=== PATIENT | female | born 1965 | race Two or more races ===

== ENCOUNTER 2021-04-26 09:32 | Outpatient (CLI) | payer OTHER | END 2021-04-26 10:56 | disposition home or self-care (01) | LOC: SONOGRAMA 09:32 | PROVIDERS: ATTEND Pathology Anatomic Pathology & Clinical Pathology | DX: E03.8 Other specified hypothyroidism (principal) ==

== ENCOUNTER 2022-02-13 16:05 | Inpatient (IN) | payer OTHER ==
[~2022-02-13] VITALS: Ht 160 cm; Wt 74.4 kg
[~2022-02-13 16:05] MED LIST: ALENDRONATE SOD70 MG PO; ATORVASTATIN CA10 MG PO; BACLOFEN10 MG PO; CARAFATE1 GM; CLONAZEPAM0.5 MG PO; DAFLONEX-XL 11300 MG PO; FLUOXETINE HCL60 MG; MAXIMUM D3325 MCG PO; OMEPRAZOLE-BIC1 EAC1; PEPCID AC20 MG; TERBINAFINE HC250 MG; ZIAC 2.5-6.251 EACH
== END 2022-02-25 22:20 | disposition home or self-care (01) | DRG 445 ==
LOC: ER 16:05 → SURH 23:41 → SEC-K 23:41 → SURH 02-14 08:25 → O/R 02-15 12:56 → SURH 02-15 12:58
PROVIDERS: ADMIT Internal Medicine; ATTEND Internal Medicine
PROC: BW21ZZZ Computerized Tomography (CT Scan) of Abdomen and Pelvis (ICD-10-PCS; principal; 2022-02-13)
PROC: BF37ZZZ Magnetic Resonance Imaging (MRI) of Pancreas (ICD-10-PCS; 2022-02-13)
PROC: 0F798DZ Dilation of Common Bile Duct with Intraluminal Device, Via Natural or Artificial Opening Endoscopic (ICD-10-PCS; 2022-02-20)
DX: K91.5 Postcholecystectomy syndrome (principal); D69.0 Allergic purpura; K80.51 Calculus of bile duct without cholangitis or cholecystitis with obstruction; I10 Essential (primary) hypertension; M81.0 Age-related osteoporosis without current pathological fracture; Z20.822 Contact with and (suspected) exposure to COVID-19

== ENCOUNTER 2023-07-01 07:23 | Outpatient (CLI) | payer OTHER ==
[~2023-07-01 07:23] MED LIST changes: +LEVOTHYROXINE25 MCG PO
== END 2023-07-01 07:24 | disposition home or self-care (01) ==
LOC: NUCLEAR 07:23
PROVIDERS: ATTEND Internal Medicine Hematology & Oncology
DX: E21.0 Primary hyperparathyroidism (principal)

== ENCOUNTER 2024-01-22 14:35 | Emergency (ER) | payer OTHER ==
[~2024-01-22] VITALS: Ht 154.9 cm; Wt 77.1 kg
[2024-01-22] MEDS ORDERED: FAMOTIDINE/PF 20 MG in 0.9 % SODIUM CHLORIDE 8 ML IV PUSH STA (16:28)
[2024-01-22] MEDS ORDERED: GUAIFENESIN/DEXTROMETHORPHAN 10ML BLIST.PACK PO ONE ×2 (16:30→16:32)
[2024-01-22] MEDS ORDERED: ONDANSETRON HCL 2 MG/ML VIAL IV ONE (16:30)
[2024-01-22] MEDS ORDERED: 0.9 % SODIUM CHLORIDE 1,000 ML IV SCH (16:30)
[2024-01-22] MEDS ORDERED: ONDANSETRON HCL 2 MG/ML VIAL ONE (16:32)
[2024-01-22] MEDS ORDERED: FAMOtidine 200mg/20ml VIAL ONE (16:33)
[2024-01-22 16:55] LABS: HEMATOCRIT 35.9 % (36.0-45.00); MEAN CELL VOLUME 80.4 fL (80.00-100.00); MEAN CORPUSCULAR HEMOGLOBIN 26.9 pg (27.00-32.0); MEAN CORPUSCULAR HGB CONC 33.4 g/dl (32.0-36.0); PLATELET COUNT 271 K/uL (150-450); RED BLOOD COUNT 4.46 M/uL (4.00-6.00); RED CELL DISTRIBUTION WIDTH 14.5 % (11.5-14.5)
[2024-01-22 17:24] LABS: BILIRUBIN TOTAL 0.24 mg/dL (0.3-1.2); CALCIUM 9.3 mg/dL (8.5-10.1); CREATININE SERUM 0.93 mg/dL (0.55-1.02); GFR 61.71; GLOBULINA 3.9 G/DL (2.4-3.5); POTASSIUM 3.35 mEq/L (3.5-5.1); TOTAL PROTEIN 6.9 gm/dL (6.4-8.2)
[2024-01-22] MEDS ORDERED: DOLOGEN CAPLET1 EACH PO (18:30)
[2024-01-22] MEDS ORDERED: ZITHROMAX500 MG PO (18:30)
[2024-01-22] MEDS ORDERED: TUSNEL LIQUID178 ML PO (18:30)
== END 2024-01-22 18:53 | disposition home or self-care (01) ==
LOC: ER 14:35
PROVIDERS: General Practice
DX: U07.1 COVID-19 (principal); I10 Essential (primary) hypertension

== ENCOUNTER 2024-04-22 07:15 | Outpatient (CLI) | payer OTHER ==
[~2024-04-22 07:15] MED LIST changes: +DOLOGEN CAPLET1 EACH PO; +TUSNEL LIQUID178 ML PO; +ZITHROMAX500 MG PO
== END 2024-04-22 07:16 | disposition home or self-care (01) ==
LOC: NUCLEAR 07:15
PROVIDERS: ATTEND Internal Medicine Gastroenterology
DX: R10.9 Unspecified abdominal pain (principal)

== ENCOUNTER 2024-04-27 11:04 | Outpatient (CLI) | payer OTHER | END 2024-04-27 11:08 | disposition home or self-care (01) | LOC: SONOGRAMA 11:04 | PROVIDERS: ATTEND Internal Medicine Gastroenterology | DX: R10.9 Unspecified abdominal pain (principal); E04.1 Nontoxic single thyroid nodule ==

== ENCOUNTER → 2024-04-27 11:55 | Outpatient (CLI) | payer OTHER ==
[2024-04-27 13:12] LABS: URINE APPEARANCE Cloudy; URINE BILIRRUBIN Negative (NEGATIVE); URINE BLOOD Negative; URINE COLOR Yellow; URINE GLUCOSE Negative (NEGATIVE); URINE KETONE Trace (NEGATIVE); URINE LEUKOCYTE Trace; URINE NITRATE Negative; URINE PROTEIN Negative (NEGATIVE); URINE UROBILINOGEN 0.2 E.U./dl
[2024-04-27 13:13] LABS: URINE BACTERIA 1603.8 uL (0.0-1933); URINE EPITHELIAL CELLS 152.8 uL (0.0-38.8); URINE RBC 2.1 uL (0.0-20.8); URINE WBC 15.6 uL (0.0-23.2)
[2024-04-27 13:25] LABS: HEMATOCRIT 36.2 % (36.0-45.00); MEAN CORPUSCULAR HEMOGLOBIN 26.4 pg (27.00-32.0); MEAN CORPUSCULAR HGB CONC 33.1 g/dl (32.0-36.0); PLATELET COUNT 322 K/uL (150-450); RED BLOOD COUNT 4.53 M/uL (4.00-6.00); RED CELL DISTRIBUTION WIDTH 15.7 % (11.5-14.5)
[2024-04-27 13:31] LABS: URINE CAST 0.15 uL (0.0-1.40)
[2024-04-27 13:39] LABS: INR 0.98; PARTIAL THROMBOPLASTIN TIME 26.6 SECONDS (22.0-34.0); PROTHROMBIN TIME 10.7 SECONDS (9.0-11.5)
[2024-04-27 14:24] LABS: ALBUMIN 3.5 gm/dL (3.4-5.0); BILIRUBIN TOTAL 0.28 mg/dL (0.3-1.2); CHOL HDL RATIO 2.5 (0-5.0); CREATININE SERUM 0.98 mg/dL (0.55-1.02); GFR 58.09; GLOBULINA 3.8 G/DL (2.4-3.5); POTASSIUM 4.14 mEq/L (3.5-5.1); T4 FREE 1.17 NG/ML (0.76-1.46); TOTAL PROTEIN 7.3 gm/dL (6.4-8.2); TSH 2.37 uIU/mL (0.358-3.74)
[2024-04-27 14:37] LABS: T3 TOTAL 1.32 ng/ml (0.846-2.02); VITAMIN D3 25 HYDROXY 34.07 ng/ml (30-120)
== END | disposition home or self-care (01) ==
LOC: LAB 11:55
PROVIDERS: ATTEND Internal Medicine
DX: D65 Disseminated intravascular coagulation [defibrination syndrome] (principal); K51.911 Ulcerative colitis, unspecified with rectal bleeding; E13.9 Other specified diabetes mellitus without complications; E78.5 Hyperlipidemia, unspecified; N39.0 Urinary tract infection, site not specified; E03.9 Hypothyroidism, unspecified; E53.8 Deficiency of other specified B group vitamins; D51.9 Vitamin B12 deficiency anemia, unspecified

== ENCOUNTER 2024-05-14 07:09 | Outpatient (CLI) | payer OTHER | END 2024-05-14 07:10 | disposition home or self-care (01) | LOC: NUCLEAR 07:09 | PROVIDERS: ATTEND Specialist | DX: M81.0 Age-related osteoporosis without current pathological fracture (principal); I20.9 Angina pectoris, unspecified; I10 Essential (primary) hypertension; E78.00 Pure hypercholesterolemia, unspecified ==

== ENCOUNTER 2024-07-15 09:54 | Outpatient (CLI) | payer OTHER | END 2024-07-15 10:02 | disposition home or self-care (01) | LOC: SONOGRAMA 09:54 | PROVIDERS: ATTEND Pathology Anatomic Pathology & Clinical Pathology | DX: E04.2 Nontoxic multinodular goiter (principal); D34 Benign neoplasm of thyroid gland; E07.89 Other specified disorders of thyroid ==

== ENCOUNTER → 2024-12-09 07:29 | Outpatient (CLI) | payer OTHER | END | disposition home or self-care (01) | LOC: NUCLEAR 07:00 | PROVIDERS: ATTEND Internal Medicine | DX: E21.0 Primary hyperparathyroidism (principal) ==

== ENCOUNTER 2024-12-29 12:12 | Emergency (ER) | payer OTHER ==
[~2024-12-29] VITALS: Ht 154.9 cm; Wt 88.5 kg
[2024-12-29 12:39] VITALS: BP 103/65; O2SAT 96
[2024-12-29 13:36] LABS: BASO % 0.3 % (0.1-1.2); EOS # 0.02 (0.04-0.54); EOS % 0.2 % (0.7-7.0); HEMATOCRIT 34.5 % (34.1-44.9); LYMPH # 1.83 (1.18-3.74); LYMPH % 15.6 % (19.3-53.1); MONO # 0.54 (0.24-0.82); MONO % 4.6 % (4.7-12.5); NEUT # 9.24 (1.56-6.13); NEUT % 78.6 % (34.0-71.1); PLATELET COUNT 325 K/uL (163-369); RED BLOOD COUNT 4.37 M/uL (3.93-5.22); RED CELL DISTRIBUTION WIDTH 15.9 % (11.6-14.4)
[2024-12-29 13:37] LABS: HEMOGLOBIN 10.5 g/dL (11.2-15.7)
[2024-12-29 14:01] LABS: INR < 0.93; PROTHROMBIN TIME 9.9 SECONDS (9.0-11.5)
[2024-12-29 14:03] LABS: D DIMER 0.94 MG/L
[2024-12-29 14:32] LABS: ALBUMIN 3.2 gm/dL (3.4-5.0); BILIRUBIN TOTAL 0.28 mg/dL (0.3-1.2); CALCIUM 9.7 mg/dL (8.5-10.1); CREATININE SERUM 0.82 mg/dL (0.55-1.02); GFR 71.11; GLOBULINA 3.2 G/DL (2.4-3.5); POTASSIUM 4.13 mEq/L (3.5-5.1); TOTAL PROTEIN 6.4 gm/dL (6.4-8.2)
== END 2024-12-29 15:49 | disposition home or self-care (01) ==
LOC: ER 12:12
DX: M79.89 Other specified soft tissue disorders (principal); T38.0X5A Adverse effect of glucocorticoids and synthetic analogues, initial encounter; I77.6 Arteritis, unspecified

== ENCOUNTER 2025-02-09 07:45 | Inpatient (IN) | payer OTHER ==
[~2025-02-09] VITALS: Ht 160 cm; Wt 86.2 kg
[2025-02-09 09:45] VITALS: BP 118/78
[2025-02-09] MEDS ORDERED: TRAZODONE HCL50 MG PO (09:45)
[2025-02-09 10:11] LABS: INR 0.94; URINE APPEARANCE Clear; URINE BILIRRUBIN Negative (NEGATIVE); URINE BLOOD Negative; URINE COLOR Yellow; URINE GLUCOSE Negative (NEGATIVE); URINE KETONE Trace (NEGATIVE); URINE LEUKOCYTE Small; URINE NITRATE Negative; URINE PROTEIN Negative (NEGATIVE); URINE UROBILINOGEN 0.2 E.U./dl
[2025-02-09 10:16] LABS: URINE BACTERIA 68.3 uL (0.0-1933); URINE EPITHELIAL CELLS 12.4 uL (0.0-38.8); URINE WBC 34.4 uL (0.0-23.2)
[2025-02-09 10:17] LABS: URINE CAST 0.00 uL (0.0-1.40); URINE RBC 1.4 uL (0.0-20.8)
[2025-02-09 10:35] LABS: ALT/SGPT 22.0 U/L (12-78); AST/SGOT 20.0 U/L (15-37); BILIRUBIN TOTAL 0.31 mg/dL (0.3-1.2); BUN CREA RATIO 8.0 (7.0-25.0); CREATININE SERUM 0.8 mg/dL (0.55-1.02); GFR 73.16; GLOBULINA 3.4 G/DL (2.4-3.5); GLUCOSE FASTING 71.0 mg/dL (65-100); OSMOLALITY SERUM 279.0 MOSM/KG (275-295)
[2025-02-09 10:39] LABS: BASO % 0.6 % (0.1-1.2); EOS # 0.28 (0.04-0.54); EOS % 3.4 % (0.7-7.0); LYMPH # 3.32 (1.18-3.74); LYMPH % 40.2 % (19.3-53.1); MEAN PLATELET VOLUME 10.60 fl (9.4-12.4); MONO # 0.68 (0.24-0.82); MONO % 8.2 % (4.7-12.5); NEUT # 3.91 (1.56-6.13); NEUT % 47.4 % (34.0-71.1); RED CELL DISTRIBUTION WIDTH 15.9 % (11.6-14.4)
[2025-02-17] MEDS ORDERED: HYDROCORTISONE SODIUM SUCC/PF 100 MG VIAL IV NR (11:15)
[2025-02-17] MEDS ORDERED: ENALAPRILAT DIHYDRATE 1.25 MG/ML VIAL IV PRN (12:15)
[2025-02-17] MEDS ORDERED: ONDANSETRON HCL 2 MG/ML VIAL IV PRN (12:15)
[2025-02-17] MEDS ORDERED: MORPHINE SULFATE 4 MG/ML VIAL IV ONE (13:35)
[2025-02-17] MEDS ORDERED: DIPHENHYDRAMINE HCL 75 MG,LIDOCAINE HCL 30 ML,MAG HYDROX/ALUMINUM HYD/SIMETH 30 ML PO SCH (17:00)
[2025-02-17] MEDS ORDERED: CYCLOBENZAPRINE HCL 5 MG TABLET PO SCH (17:00)
[2025-02-17] MEDS ORDERED: TRAMADOL HCL 50 MG TABLET PO SCH (17:00)
[2025-02-17] MEDS ORDERED: ACETAMINOPHEN 500 MG GEL..CAP PO SCH (17:00)
[2025-02-17] MEDS ORDERED: PANTOPRAZOLE SODIUM 40 MG/VIAL VIAL IV PUSH SCH (21:00)
[2025-02-17 21:07] VITALS: BP 118/78; O2SAT 93
[2025-02-18 01:37] VITALS: BP 111/66; O2SAT 95
[2025-02-18 08:00] VITALS: BP 106/68; O2SAT 95
[2025-02-18] MEDS ORDERED: FLUOXETINE HCL 20 MG CAPSULE PO SCH (09:00)
[2025-02-18] MEDS ORDERED: TRAZODONE HCL 50 MG TABLET PO SCH (09:00)
[2025-02-18] MEDS ORDERED: ATORVASTATIN CALCIUM 10 MG TABLET PO SCH (09:00)
[2025-02-18] MEDS ORDERED: PATIENTS OWN MEDICATION (MEDICAMENTO EN PISO) PO SCH (09:00)
[2025-02-18 11:21] LABS: BUN CREA RATIO 8.0 (7.0-25.0); CREATININE SERUM 0.88 mg/dL (0.55-1.02); GFR 65.54; GLUCOSE FASTING 108.0 mg/dL (65-100); OSMOLALITY SERUM 278.0 MOSM/KG (275-295)
[2025-02-18 16:00] VITALS: BP 120/79; O2SAT 98
[2025-02-18] MEDS ORDERED: CLONAZEPAM 0.5 MG TABLET PO SCH (17:00)
[2025-02-18] MEDS ORDERED: ORPHENADRINE CITRATE 30 MG/ML AMPUL IV ONE (18:45)
[2025-02-19 01:14] VITALS: BP 139/76; O2SAT 98
[2025-02-19] MEDS ORDERED: LEVOTHYROXINE SODIUM 50 MCG TABLET PO SCH (06:00)
[2025-02-19 08:22] VITALS: BP 127/582; O2SAT 96
[2025-02-19] MEDS ORDERED: NAPH,MB-DB/K PH,MBDB 1 PKT PACKET PO NR (13:30)
[2025-02-19] MEDS ORDERED: ENOXAPARIN SODIUM 40 MG/0.4 ML SYRINGE SUBCUTANEO NR (14:00)
[2025-02-19] MEDS ORDERED: ALBUTEROL SULFATE 3 ML/2.5 MG AMPUL.NEB IH NR (14:00)
[2025-02-19] MEDS ORDERED: CALCIUM CARBONATE/VITAMIN D3 1 TAB TABLET PO NR (14:00)
[2025-02-19 16:00] VITALS: BP 109/71; O2SAT 98
[2025-02-19] MEDS ORDERED: FLUTICASONE PROPIONATE 50 MCG SPRAY NASAL SCH (17:00)
[2025-02-19] MEDS ORDERED: BENZONATATE 100 MG CAPSULE PO SCH (17:00)
[2025-02-19] MEDS ORDERED: ALBUTEROL SULFATE 3 ML/2.5 MG AMPUL.NEB IH SCH ×2 (17:00→21:00)
[2025-02-19] MEDS ORDERED: CALCIUM CARBONATE/VITAMIN D3 1 TAB TABLET PO SCH (21:00)
[2025-02-19] MEDS ORDERED: ORPHENADRINE CITRATE 30 MG/ML AMPUL IV SCH (21:00)
[2025-02-20] VITALS: BP 124/71; O2SAT 100
[2025-02-20 08:00] VITALS: BP 109/71; O2SAT 98
[2025-02-20] MEDS ORDERED: ENOXAPARIN SODIUM 40 MG/0.4 ML SYRINGE SUBCUTANEO SCH (09:00)
[2025-02-20] MEDS ORDERED: GUAIFENESIN 200 MG/10 ML BLIST.PACK PO SCH (09:00)
[2025-02-20] MEDS ORDERED: CALCIUM CARBONATE/VITAMIN D3 1 TAB TABLET PO NR (11:30)
[2025-02-20 11:47] LABS: BUN CREA RATIO 7.0 (7.0-25.0); CREATININE SERUM 0.73 mg/dL (0.55-1.02); GFR 81.32; GLUCOSE FASTING 121.0 mg/dL (65-100); OSMOLALITY SERUM 282.0 MOSM/KG (275-295)
[2025-02-20] MEDS ORDERED: CALCIUM CARBONATE/VITAMIN D3 1 TAB TABLET PO SCH (13:00)
[2025-02-20] MEDS ORDERED: MAGNESIUM SULFATE IN WATER 2 GM/50 ML PIGGYBAG IV NR (14:00)
[2025-02-20 16:00] VITALS: BP 120/64; O2SAT 88
[2025-02-20] MEDS ORDERED: POTASSIUM BICARBONATE/CIT AC 25 MEQ TABLET.EFF PO SCH (17:00)
[2025-02-21 01:44] VITALS: BP 124/65; O2SAT 97
[2025-02-21] MEDS ORDERED: POTASSIUM CHLORIDE 20MEQ/100ML H2O PB IV ONE (06:00)
[2025-02-21 09:00] VITALS: BP 117/73; O2SAT 97
[2025-02-21 09:01] LABS: BUN CREA RATIO 7.0 (7.0-25.0); CREATININE SERUM 0.72 mg/dL (0.55-1.02); GFR 82.62; GLUCOSE FASTING 85.0 mg/dL (65-100)
[2025-02-21 09:02] LABS: OSMOLALITY SERUM 281.0 MOSM/KG (275-295)
== END 2025-02-21 11:04 | disposition home or self-care (01) | DRG 627 ==
LOC: SURH 02-17 07:45 → SURG 02-17 10:32 → O/R 02-17 10:32 → SURG 02-17 15:01
PROVIDERS: ADMIT Surgery; ATTEND Surgery
PROC: 0GBP0ZZ Excision of Left Inferior Parathyroid Gland, Open Approach (ICD-10-PCS; principal; 2025-02-17 10:00)
PROC: 3E0F7GC Introduction of Other Therapeutic Substance into Respiratory Tract, Via Natural or Artificial Opening (ICD-10-PCS; 2025-02-19)
DX: D35.1 Benign neoplasm of parathyroid gland (principal); E83.51 Hypocalcemia; M62.838 Other muscle spasm; I80.9 Phlebitis and thrombophlebitis of unspecified site; Z98.890 Other specified postprocedural states